=== PATIENT | female | born 1935 | race Caucasian/White ===

== ENCOUNTER → 2016-12-24 | Outpatient (CLI) | payer OTHER ==
[~2016-12-24] MED LIST: ASPCH81X PO; ATOR10TA82 PO; CALCCHW57 PO; MULTTAB PO
[2016-12-24 13:32] LABS: BASO % 0.8 %; BASO ABS # 0.04 K/uL (0-0.2); COMPLETE YES; EOS % 1.7 %; HEMATOCRIT 38.8 % (37-47); LYMPH % 24.5 %; LYMPH ABS # 1.16 K/uL (1.2-3.4); MEAN CELL VOLUME 95.8 fL (80-100); MEAN CORPUSCULAR HEMOGLOBIN 31.1 pg (25-34); MEAN CORPUSCULAR HGB CONC 32.5 g/dl (32-36); MEAN PLATELET VOLUME 10.3 fL (7.4-10.4); MONO % 8.9 %; NEUT % 64.1 %; PLATELET COUNT 334 K/uL (130-400); RED BLOOD COUNT 4.05 M/uL (4.2-5.4); WHITE BLOOD COUNT 4.74 K/uL (4.8-10.8)
[2016-12-24 14:24] LABS: ALT/SGPT 26 U/L (12-78); AST/SGOT 18 U/L (15-37); BLOOD UREA NITROGEN 16 mg/dl (7-18); BUN/CREATININE RATIO 20.6 (10-20); CALCIUM 9.3 mg/dl (8.5-10.1); CARBON DIOXIDE 31 mmol/L (21-32); CHLORIDE 106 mmol/L (98-107); GLUCOSE 84 mg/dl (70-99); POTASSIUM 4.2 mmol/L (3.5-5.1); SODIUM 142 mmol/L (136-145)
[2016-12-24 14:33] LABS: ALB/GLOB RATIO 1.1 (0.9-2); ALKALINE PHOSPHATASE 92 U/L (45-117); CHOLESTEROL 194 mg/dl (0-200); CHOLESTEROL/HDL RATIO 2.5; HDL CHOLESTEROL 79 mg/dl; TRIGLYCERIDES 49 mg/dl (0-150); VERY LOW DENSITY LIPOPROT CALC 10 mg/dl
== END | disposition home or self-care (01) ==
LOC: C.LABSPEC 12:32
PROVIDERS: ATTEND Internal Medicine
DX: E78.5 Hyperlipidemia, unspecified (principal); D64.9 Anemia, unspecified; Z85.3 Personal history of malignant neoplasm of breast

== ENCOUNTER → 2016-12-30 | Outpatient (CLI) | payer OTHER | END | disposition home or self-care (01) | LOC: C.PAPS 14:20 | PROVIDERS: ATTEND Internal Medicine | DX: Z12.4 Encounter for screening for malignant neoplasm of cervix (principal) ==

== ENCOUNTER → 2017-01-01 | Outpatient (CLI) | payer OTHER | END | disposition home or self-care (01) | LOC: C.LABSPEC 15:26 | PROVIDERS: ATTEND Internal Medicine | DX: Z12.11 Encounter for screening for malignant neoplasm of colon (principal) ==

== ENCOUNTER → 2017-01-07 | Outpatient (CLI) | payer OTHER ==
[2017-01-07 14:50] VITALS: BP 155/77; PULSE 71; TEMP 36.7; O2SAT 97
--- NOTE | 2017-01-07 15:49 | Radiation Oncology Follow-Up ---
Radiation Oncology Follow-Up Date of Visit January 07, 2017. 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 She denies any changes to her breast. She has noted no masses or tenderness and no change in the axilla. She did have discomfort following her mammogram in January. This lasted for approximately one month then resolved. There is no ecchymosis. This was located in the upper outer portion of the breast towards the axilla. Last year she was having some GI issues. She took ranitidine for a very short period of time and this resolved without difficulty. Allergies Coded Allergies: No Known Allergies (Verified , 03/13/15) Home Medications Scheduled Aspirin (Aspirin Chewable), 162 MG PO QAM Atorvastatin (Lipitor), 10 MG PO HS Calcium Carbonate-Vitamin D W/ (Calcium 1200), 600 MG PO BID Multivitamins/Minerals (Mvi With Minerals), 1 TAB PO QAM Review of Systems Gastrointestinal: Symptoms: WNL Oral: Symptoms: No Problems Other Oral Symptoms: Admits to sore on skin between nose and upper lip since yesterday Respiratory: Symptoms: WNL Urinary: Symptoms: WNL Comments: Recurrent UTI's since Jul;Referred to Dr. Gentile;Stress incontinence; Skin: Symptoms: No Problems Breast: Right Upper Arm Measurement: 32.0 Right Mid Arm Measurement: 24.0 Right Wrist Measurement: 16.0 Left Upper Arm Measurement: 32.0 Left Mid Arm Measurement: 24.0 Left Wrist Measurement: 15.0 Arm Dominence: Right Physical Exam Vital Signs Date Time Temp Pulse Resp B/P Pulse Ox O2 Delivery O2 Flow Rate FiO2 01/07/17 14:50 36.7 71 18 155/77 97 Pain: Pain Location: None Patient Pain Scale: 0 - 10 Initial Pain Intensity: 0.0 Fatigue: None General Appearance: no apparent distress Eyes: normal inspection, EOMI ENT: normal ENT inspection, hearing grossly normal Neck: no adenopathy Respiratory/Chest: lungs clear, no respiratory distress, no accessory muscle use Breast: Breast examination reveals well-healed incision of the left breast. There are no masses or tenderness and no axillary adenopathy. She is no skin retractions or nipple changes. Using the Princeton score cosmesis she has a excellent outcome. The right breast showed no masses or tenderness and no axillary adenopathy. Cardiovascular: regular rate, rhythm, no gallop, no murmur Abdomen: non tender, soft Neurologic/Psychiatric: no motor/sensory deficits, alert, normal mood/affect Skin: warm/dry Lymphatic: no adenopathy Laboratory Studies Test 12/24/16 09:00 01/01/17 00:00 White Blood Count 4.74 K/uL (4.8-10.8) Red Blood Count 4.05 M/uL (4.2-5.4) Hemoglobin 12.6 g/dL (12.0-16.0) Hematocrit 38.8 % (37-47) Mean Corpuscular Volume 95.8 fL (80-100) Mean Corpuscular Hemoglobin 31.1 pg (25-34) Mean Corpuscular Hemoglobin Concent 32.5 g/dl (32-36) Platelet Count 334 K/uL (130-400) Mean Platelet Volume 10.3 fL (7.4-10.4) Neutrophils (%) (Auto) 64.1 % Lymphocytes (%) (Auto) 24.5 % Monocytes (%) (Auto) 8.9 % Eosinophils (%) (Auto) 1.7 % Basophils (%) (Auto) 0.8 % Neutrophils # (Auto) 3.04 K/uL (1.4-6.5) Lymphocytes # (Auto) 1.16 K/uL (1.2-3.4) Monocytes # (Auto) 0.42 K/uL (0.11-0.59) Eosinophils # (Auto) 0.08 K/uL (0-0.5) Basophils # (Auto) 0.04 K/uL (0-0.2) RDW Standard Deviation 50.3 fL (36.4-46.3) RDW Coefficient of Variation 14.3 % (11.5-14.5) Immature Granulocyte % (Auto) 0.0 % Immature Granulocyte # (Auto) 0.00 K/uL (0.00-0.02) Sodium Level 142 mmol/L (136-145) Potassium Level 4.2 mmol/L (3.5-5.1) Chloride Level 106 mmol/L (98-107) Carbon Dioxide Level 31 mmol/L (21-32) Anion Gap 5.0 mmol/L (3-11) Blood Urea Nitrogen 16 mg/dl (7-18) Creatinine 0.80 mg/dl (0.60-1.20) Estimated GFR () 81.3 Estimated GFR (Non- 70.1 BUN/Creatinine Ratio 20.6 (10-20) Random Glucose 84 mg/dl (70-99) Calcium Level 9.3 mg/dl (8.5-10.1) Total Bilirubin 0.6 mg/dl (0.2-1) Aspartate Amino Transferase (AST) 18 U/L (15-37) Alanine Aminotransferase (ALT) 26 U/L (12-78) Alkaline Phosphatase 92 U/L (45-117) Total Protein 7.2 gm/dl (6.4-8.2) Albumin 3.8 gm/dl (3.4-5.0) Globulin 3.4 gm/dl (2.5-4.0) Albumin/Globulin Ratio 1.1 (0.9-2) Triglycerides Level 49 mg/dl (0-150) Cholesterol Level 194 mg/dl (0-200) HDL Cholesterol 79 mg/dl LDL Cholesterol Direct 101 mg/dl LDL Cholesterol, Calculated mg/dl VLDL Cholesterol, Calculated 10 mg/dl Cholesterol/HDL Ratio 2.5 Additional Studies Patient: EMMIE JONES [facility] Rec: [id number] Address1: [address] [place] [address] [facility]: [id number] Date: 1935 Sex: F Ref Phy: Att Phy: Cathy Guajardo PA-C Wilma Phy: Dalton Wright M.D. Inter Phy: Ban Brumfield MD [facility] Zip: [place] [address] SC: [id number] Report #: [id number] Quilt Maker: [email or web address] Diagnosis: 6 MONTH F/U BILATERAL Service Date: 01/28/16 MNE: [id number] Ordering Dr: Cathy Guajardo PA-C CC: Cathy Guajardo PA-C CONF: DICTATED BY: Ban Brumfield MD MAMMOGRAPHY REPORT BILATERAL DIGITAL DIAGNOSTIC MAMMOGRAM 3D/2D WITH CAD: 01/28/2016 CLINICAL HISTORY: History of left breast cancer status post lumpectomy February 2015 and radiation therapy. Comparison is made to exams dated: 08/15/2015 mammogram, 01/23/2015 mammogram, mammogram, 02/13/2015 mammogram, 02/01/2015 mammogram, and 01/04/2014 mammogram - [facility]. FINDINGS: Bilateral CC and MLO 2-D and tomosynthesis images and spot magnification left CC and ML views were obtained. There are scattered areas of fibroglandular density in both breasts. Current study was also evaluated with a Computer Aided Detection (CAD) system. There are stable post surgical changes in the left upper outer quadrant from prior lumpectomy, with stable density, architectural distortion, and surgical clips at the lumpectomy bed. Spot magnification views of the lumpectomy bed demonstrate no suspicious masses or clusters of microcalcifications. A few scattered punctate benign-appearing calcifications are seen within the left upper outer quadrant which are stable. Mild diffuse left breast skin and trabecular thickening is stable and likely a sequela of radiation therapy. There are no suspicious masses, calcifications, or areas of architectural distortion noted in either breast. IMPRESSION: ACR BI-RADS CATEGORY 2: BENIGN There is no mammographic evidence of malignancy in either breast. Recommend routine bilateral mammograms in one year; I would recommend the patient remain a diagnostic patient so that spot magnification views can be performed of the lumpectomy bed if needed. The patient has been verbally notified of the results. Approximately 10% of breast cancers are not detected with mammography. A negative mammographic report should not delay biopsy if a clinically suggestive mass is present. Ban Brumfield M.D. /:01/28/2016 09:28:42 Chief Of Hospital Medicine: Migdalia HYLTON (R)(Aliyah), [facility] letter sent: Normal 1/2 BI-RADS Code: ACR BI-RADS Category 2: Benign Dictated by: Ban Brumfield MD Signed by: Ban Brumfield MD Assessment & Plan Plan: Continue with annual mammography. Continue regular follow-up with Dr. Heath and her primary care provider. He discussed the area of discomfort following mammography. I've asked her to review this with the nuclear chemistry technician at the time of her next mammogram. We asked her to return to our office in 1 year. She may call if she has any questions or concerns in the interim. Total Time In Follow-Up I spent 20 minutes speaking to the patient and performing examination. I spent 15 minutes reviewing information and completing this note. Copy To Dalton Wright M.D.; Steve Heath M.D. 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
== END | disposition home or self-care (01) ==
LOC: C.ONC 14:14
PROVIDERS: ATTEND Physician Assistant Medical
DX: Z08 Encounter for follow-up examination after completed treatment for malignant neoplasm (principal); Z92.3 Personal history of irradiation; Z85.3 Personal history of malignant neoplasm of breast

== ENCOUNTER → 2017-01-30 | Outpatient (CLI) | payer OTHER ==
--- NOTE | 2017-01-30 15:41 | MAMMOGRAPHY REPORT ---
BILATERAL DIGITAL SCREENING MAMMOGRAM TOMOSYNTHESIS WITH CAD: 01/30/2017 CLINICAL HISTORY: Asymptomatic. Personal history of breast cancer. TECHNIQUE: Breast tomosynthesis in addition to standard 2D mammography was performed. Current study was also evaluated with a Computer Aided Detection (CAD) system. COMPARISON: Comparison is made to exams dated: 01/28/2016 mammogram, 08/15/2015 mammogram, 02/13/2015 mammogram, 02/01/2015 mammogram, 01/23/2015 mammogram, and 01/04/2014 mammogram - [facility] enter. BREAST COMPOSITION: There are scattered areas of fibroglandular density in both breasts. FINDINGS: No suspicious masses, calcifications, or areas of architectural distortion are noted in ei ther breast. There has been no significant interval change compared to prior exams. There are stable post surgical changes in the left upper outer quadrant from prior lumpectomy. A linear scar marker denotes a scar on the left upper outer breast. IMPRESSION: ACR BI-RADS CATEGORY 2: BENIGN There is no mammographic evidence of malignancy. A 1 year screening mammogram is recommended. The pa tient will receive written notification of the results. Approximately 10% of breast cancers are not detected with mammography. A negative mammographic report should not delay biopsy if a clinically suggestive mass is present. Ban Brumfield M.D. /:01/30/2017 14:53:57 Service Greeter: Paty HYLTON(Sumaya)(Aliyah)(BD), [facility] letter sent: Normal 1/2 BI-RADS Code: ACR BI-RADS Category 2: Benign
== END | disposition home or self-care (01) ==
LOC: C.MAMM 09:32
PROVIDERS: ATTEND Internal Medicine
DX: Z12.31 Encounter for screening mammogram for malignant neoplasm of breast (principal); Z85.3 Personal history of malignant neoplasm of breast

== ENCOUNTER → 2017-07-13 | Outpatient (CLI) | payer OTHER ==
[2017-07-13 15:22] LABS: BLOOD UREA NITROGEN 15 mg/dl (7-18); BUN/CREATININE RATIO 17.9 (10-20); CALCIUM 9.2 mg/dl (8.5-10.1); CARBON DIOXIDE 29 mmol/L (21-32); CHLORIDE 101 mmol/L (98-107); CHOLESTEROL 194 mg/dl (0-200); CREATININE 0.83 mg/dl (0.60-1.20); GLUCOSE 78 mg/dl (70-99); POTASSIUM 3.5 mmol/L (3.5-5.1); SODIUM 136 mmol/L (136-145)
[2017-07-13 15:26] LABS: CHOLESTEROL/HDL RATIO 2.3; HDL CHOLESTEROL 83 mg/dl; TRIGLYCERIDES 51 mg/dl (0-150); VERY LOW DENSITY LIPOPROT CALC 10 mg/dl
== END | disposition home or self-care (01) ==
LOC: C.LABSPEC 14:51
PROVIDERS: ATTEND Internal Medicine
DX: E78.5 Hyperlipidemia, unspecified (principal); N39.0 Urinary tract infection, site not specified

== ENCOUNTER → 2017-12-11 | Outpatient (CLI) | payer OTHER | END | disposition home or self-care (01) | LOC: C.LABSPEC 16:37 | PROVIDERS: ATTEND Internal Medicine | DX: N39.0 Urinary tract infection, site not specified (principal) ==

== ENCOUNTER 2019-01-27 05:30 | Inpatient (IN) ==
--- NOTE | 2019-01-07 10:45 | Anesthesiology Consultation ---
Date of Service January 07, 2019 Assessment & Plan (1) Encounter for pre-operative examination: Chart Review Chart Review: Acceptable Risk for Surgery and Patient NOT seen in Pre Admission Testing History Surgery Operation Date: 01/27/19 07:00 Proposed Procedures p Laparoscopic- Assisted Colon Resection, - Rob Vernon MD s Possible Open Bilateral Salpingo-Oophorectomy - Rob Vernon MD Height/Weight Height: 5 ft 6 in Weight: 77.111 kg Allergies Allergy/AdvReac Type Severity Reaction Status Date / Time No Known Allergies Allergy Mild Verified 01/05/19 08:31 Medications Home Medications Medication Instructions Recorded Confirmed Last Taken aspirin 162 mg PO HS 01/05/19 01/05/19 Unknown atorvastatin [Lipitor] 10 mg PO HS 01/05/19 01/05/19 Unknown calcium carbonate-vitamin D3 1 cap PO HS 01/05/19 01/05/19 Unknown [Calcium 600 with Vitamin D3] cholecalciferol (vitamin D3) 1,000 unit PO QAM 01/05/19 01/05/19 Unknown [Vitamin D3] multivitamin with minerals 1 cap PO QAM 01/05/19 01/05/19 Unknown Past Medical History Medical History Cancer LEFT BREAST CANCER (RADIATION [place]) Diverticulitis GERD (gastroesophageal reflux disease) Hepatitis A 1967 Hyperlipidemia Osteoarthritis Past Surgical History Surgical History History of bladder surgery SLING History of colonoscopy History of dilatation and curettage History of lumpectomy LEFT History of tooth extraction Social History Smoking Status: Never smoker Do You Dip or Chew Tobacco: No Hx Alcohol Use: No Hx Substance Use: No substance use type: does not use Testing Electrocardiogram Date: 12/18/18 Findings: + NSR @ (71) Other Testing Laboratory Tests 07/15/18 12/28/18 12/28/18 11:50 14:00 14:00 WBC Hgb Hct Plt Count PT 10.3 INR 1.0 APTT 25.3 Sodium 140 Potassium 3.5 Chloride 105 Carbon Dioxide 29 BUN 10 Creatinine 0.77 Glucose 72 TSH 1.340 12/28/18 14:00 WBC 6.48 Hgb 11.9 L Hct 36.0 L Plt Count 411 H PT INR APTT Sodium Potassium Chloride Carbon Dioxide BUN Creatinine Glucose TSH
[2019-01-27] MEDS ORDERED: LR 15ML/HR IV SCH (06:00)
[2019-01-27] MEDS ORDERED: ePHEDrine sulfate 50 MG/ML AMP IV PRN (06:23)
[2019-01-27] MEDS ORDERED: ONDANSETRON INJ 2 MG/ML 2 ML VIAL IV PRN (06:23)
[2019-01-27] MEDS ORDERED: ATROPINE SULFATE 0.1 MG/ML 10ML SYR IV PRN (06:23)
[2019-01-27] MEDS ORDERED: PHENYLEPHRINE 100MCG/ML 5ML SYR IV PRN (06:23)
--- NOTE | 2019-01-27 06:25 | History & Physical Bridge Note ---
Date of Service January 27, 2019 History & Physical Bridge Note I have examined the patient, reviewed the History & Physical and in the interval since the performance of the History & Physical I have noted the following changes of clinical significance: no changes noted had some bleeding per with bowel prep yesterday stopped in evening no changes since last seen all questions answered 5 family members at bedside will check hg although color good and vitals noted
[2019-01-27] MEDS ORDERED: fentaNYL citrate 100 MCG/2 ML VIAL ONE ×2 (06:44→08:13)
[2019-01-27] MEDS ORDERED: ACETAMINOPHEN 1000 MG/100 ML IV IV ONE (06:51)
--- NOTE | 2019-01-27 06:58 | Gynecologic Progress Note ---
Date of Service January 27, 2019 Subjective I saw patient preop, discussed procedure - plan is for bilateral oophorectomy and salpingectomy, laparoscopic unless conversion to open is needed. Skin marked, consent reviewed. Questions answered. Reviewed, that although case and imaging has been reviewed by legal document specialist oncologist and felt to be benign ovarian pathology, there is a possibility that this could be involved with or related to the colon cancer - thus complicating surgical management. Results & Data Vital Signs (Past 12 Hours) Vital Signs Temp Pulse Resp BP Pulse Ox 01/27/19 05:54 36.5 C 90 20 163/81 H 97
[2019-01-27] MEDS ORDERED: BUPIVACAINE 0.5 % 5 MG/1 ML MPF 30ML VIAL ONE (07:00)
[2019-01-27] MEDS ORDERED: LIDOCAINE/EPINEPHRINE 1% 20 ML VIAL ONE (07:00)
[2019-01-27] MEDS ORDERED: DEXAMETHASONE SOD INJ 4 MG/ML VIAL ONE (07:45)
[2019-01-27] MEDS ORDERED: LIDOCAINE HCL 2% 2 ML VIAL/AMP(20MG/ML) INFIL ONE (07:45)
[2019-01-27] MEDS ORDERED: PROPOFOL IV EMULSION 10 MG/ML 20 ML VIAL IV ONE (07:45)
[2019-01-27] MEDS ORDERED: ONDANSETRON INJ 2 MG/ML 2 ML VIAL ONE (07:45)
[2019-01-27] MEDS ORDERED: GLYCOPYRROLATE 0.2 MG/ML VIAL ONE (07:45)
[2019-01-27] MEDS ORDERED: ROCURONIUM BROMIDE 10 MG/ML 5 ML VIAL ONE (07:45)
[2019-01-27] MEDS ORDERED: NEOSTIGMINE METHYLSULFATE 5 MG/5 ML SYR ONE (07:45)
[2019-01-27 07:56] LABS: Hematocrit (blood only) 33.2 % (37-47); Mean Corpuscular Volume 90.5 fL (80-100); Mean Platelet Volume 9.9 fL (7.4-10.4); Platelet Count 323 K/uL (130-400); RDW Coefficient of Variation 14.6 % (11.5-14.5); RDW Standard Deviation 47.8 fL (36.4-46.3); Red Blood Count 3.67 M/uL (4.2-5.4); White Blood Count 6.26 K/uL (4.8-10.8)
[2019-01-27 08:06] LABS: Mean Corpuscular Hgb Conc 33.1 g/dL (32-36)
--- NOTE | 2019-01-27 08:09 | Operative Report ---
Post Operative Report Pre & Post Diagnosis Operation Date: 01/27/19 07:00 Pre: Right adnexal cyst Post: same Procedure Operation Date: 01/27/19 07:00 Bilateral salpingoophorectomy Surgeon Makenzie Saha, DO Informatics Nurse Dr Sami Vernon Estimated Blood Loss 5 Findings Consistent with Post-Op Diagnosis Simple appearing right adnexal cyst. Normal appearing bilateral tubes. Normal appearing left ovary. Specimens Right fallopian tube/ovary, left fallopian tube/ovary. Drains escalante, clear yellow Anesthesia Type General Complications none Disposition Accompanied Patient To Recovery: No Indications 83yo female with right adnexal cyst, also with adenocarcinoma of colon. She is undergoing colon resection today with Dr Vernon, therefore bilateral salpingoophorectomy was recommended concurrently for removal of adnexal cyst. Description of Procedure For details of colon resection, please see Dr Vernon's documentation. Upon placement of Bookwalter retractor and packing of bowel by Dr Vernon, uterus/tubes/ovaries were evaluated. The left tube and ovary were noted to be normal. This was grasped with a [place] clamp, ureter was identified away from the field, and the infundibulopelvic ligament was coagulated and transected with Ligasure. In a similar fashion, the fallopian tube and uteroovarian ligament were transected. The left tube/ovary were passed off to be sent to pathology. The right tube and ovary were identified, with a 5cm simple-appearing cyst. This was grasped with a vanessa clamp, ureter identified away from the field, and the right infundibulopelvic ligament was transected with Ligasure. The fallopian tube and right uteroovarian ligament were also transected and the specimen was passed off labeled Right ovary and fallopian tube. Bilateral ureters were visualized, urine clear. Excellent hemostasis noted. For further details of general surgery portion of case, please see general surgery documentation. I attest to the content of the Intraoperative Record and any orders documented therein. Any exceptions are noted below.
[2019-01-27] MEDS ORDERED: LABETALOL HCL IV 5 MG/ML 20ML IV ONE (08:48)
--- NOTE | 2019-01-27 09:15 | Post Operative Brief Note ---
Immediate Post Op Note v1 Date of Surgery January 27, 2019 Pre & Post Diagnosis Operation Date: 01/27/19 07:00 Pre-Op Diagnosis: Right ovarian Cyst; Adenocarcinoma Sigmoid Post-Op Diagnosis: Right ovarian Cyst; Adenocarcinoma Sigmoid Procedure Operation Date: 01/27/19 07:00 Actual Procedures p Laparoscopic- Assisted, Converted to Open Colon Resection - MD nichelle Main Bilateral Salpingo-Oophorectomy(Bilateral) - Makenzie Saha DO Surgeon Rob Vernon MD Fruit Grader Operator Dr Nichelle Vernon Estimated Blood Loss 100 Findings Consistent with Post-Op Diagnosis Drains Skyler Drain, Marcelo Catheter and Cowgill Drain Anesthesia Type General
--- NOTE | 2019-01-27 09:23 | Operative Report ---
Post Operative Report Pre & Post Diagnosis Operation Date: 01/27/19 07:00 Pre-Op Diagnosis: Right ovarian Cyst; Adenocarcinoma Sigmoid Post-Op Diagnosis: Right ovarian Cyst; Adenocarcinoma Sigmoid Procedure Operation Date: 01/27/19 07:00 Actual Procedures p Laparoscopic- Assisted, Converted to Open Colon Resection - Rob Vernon MD s Bilateral Salpingo-Oophorectomy(Bilateral) - Makenzie Saha DO The patient was brought into the operating theater supine position general endotracheal anesthesia Marcelo catheter was inserted abdomen was prepped Betadine solution properly draped systemic antibiotics given timeout was had patient identified made a small incision supraumbilically sufficient enough for a Veress needle followed by CO2 followed by 5 mm trocar point of entry inspected no injury identified this point place a 5 mm right lower quadrant port with preemptive analgesic and a 5 mm left upper quadrant port patient then we identified the colon which at the sigmoid area probably the area of interest seem to be fine adhesions to the abdominal wall which using scissors we freed that up and took that part with the colon which did not at the end appear to be any invasion of tumor this may been just inflammatory response we dissected down the white line of Toldt all the way up to the splenic flexure area we dissected down distally down and pelvic area this point I felt we had enough mobilization that we converted to an open procedure making a small incision supraumbilically approximately 8 cm long deepened to subcutaneous tissue and through the abdominal cavity Bookwalter retractor was inserted the bowel was pushed out retracted and at this point turned over the surgery to Dr. Saha and she performed bilateral salpingo-oophorectomy once that was completed we went on the performed her sigmoid resection we elevated the mass side of the abdominal wall and actually enough enough mobility proximally there we divided the descending colon approximately 8 cm so from the mass using a FE stapler the mesentery to that area was taken down to the inferior mesenteric artery doubly ligating the artery 2-0 silk resecting and distally we took the line of resection almost to the rectum taken the mesentery to stay in anterior to the bowels are higher as fascia identified both ureters and avoiding of right ankle intestinal clamp was placed in the distal sigmoid rectal area and resected the tumor with the specimen we then performed the anastomosis as removed tension-free we could do an end-to-end anastomosis by first using intestinal clamp and the descending colon proximal to the lateral resection then freed up the staple line that we initially placed and similarly we brought in the distal sigmoid rectal area using 3-0 silk sutures are layer 3-0 chromic interlayer doing an end and had a stent anastomosis some blood supply was excellent at the end we checked the anastomosis for patency appear satisfactory the area was then irrigated free of any debris I elected to drain the pelvis with a Skyler drain taken out the left lower quadrant incision attached to skin edge with 2-0 silk the abdominal incision was closed using #1 chromic for posterior peritoneum and rectus and interrupted #1 PDS for the anterior rectus quarter inch Shiva subcutaneously attached to the distal ends of either side with 3-0 silk arelis were used for the incision and the trocar site procedure was tolerated well by the patient estimated blood loss 100 cc addendum Fermin Real was present throughout the procedure and helped with exposure retraction and wound closure Surgeon Rob Vernon MD Realty Loan Specialist Dr Sami Vernon Estimated Blood Loss 100 Findings Consistent with Post-Op Diagnosis Specimens sigmoid colon Description of Procedure merda I attest to the content of the Intraoperative Record and any orders documented therein. Any exceptions are noted below.
[2019-01-27] MEDS: fentaNYL citrate 100 MCG/2 ML VIAL IV PRN ×4 (09:28→09:43)
[2019-01-27] MEDS: HYDROmorphone INJ 1 MG/ML SYRINGE IV PRN ×8 (09:48→10:25)
--- NOTE | 2019-01-27 10:56 | Anesthesiology Progress Note ---
Date of Service January 27, 2019 Anesthesia Post Procedure Vital Signs Vital Signs: Temp Pulse Resp BP Pulse Ox 01/27/19 10:50 36.3 C L 79 17 167/89 H 96 01/27/19 10:40 36.3 C L 76 16 165/83 H 99 01/27/19 10:30 72 15 168/79 H 99 01/27/19 10:20 67 16 183/86 H 100 01/27/19 10:10 68 18 188/77 H 100 01/27/19 10:00 36.6 C 84 22 171/87 H 100 01/27/19 09:50 36.6 C 60 22 159/66 H 100 01/27/19 09:40 36.6 C 65 25 H 150/83 H 100 01/27/19 09:30 36.6 C 69 23 145/74 H 100 01/27/19 09:20 36.6 C 77 16 168/81 H 100 01/27/19 05:54 36.5 C 90 20 163/81 H 97 Pain Intensity Abdomen: Pain Intensity: 8 Transfer of Care Handoff Completed per policy Notes Mental Status: alert / awake / arousable Patient Amnestic to Procedure: Yes Nausea / Vomiting: adequately controlled Pain: adequately controlled Airway Patency, RR, SpO2: stable & adequate BP & HR: stable & adequate Hydration State: stable & adequate Anesthetic Complications: no major complications apparent
[2019-01-27] MEDS ORDERED: ACETAMINOPHEN 1,000 MG/100 ML VIAL IV PRN (11:43)
[2019-01-27] MEDS ORDERED: MoRPHine SULFATE 2 MG/ML CARP IV PRN (11:43)
[2019-01-27] MEDS: LACTATED RINGER'S 1,000 ML IV SCH ×2 (12:01→23:01)
[2019-01-27 12:24] LABS: Hematocrit (blood only) 33.3 % (37-47); Hemoglobin 10.9 g/dL (12.0-16.0); Mean Corpuscular Hgb Conc 32.7 g/dL (32-36); Mean Platelet Volume 9.4 fL (7.4-10.4); Platelet Count 325 K/uL (130-400); RDW Coefficient of Variation 14.5 % (11.5-14.5); RDW Standard Deviation 48.1 fL (36.4-46.3); Red Blood Count 3.66 M/uL (4.2-5.4); White Blood Count 13.17 K/uL (4.8-10.8)
[2019-01-27 12:39] LABS: INR 1.1 (0.9-1.1)
[2019-01-27] MEDS: ONDANSETRON INJ 2 MG/ML 2 ML VIAL IV PRN (12:58)
[2019-01-27] MEDS: cefOXitin 2,000 MG in DEXTROSE 5% 50 ML IV SCH ×3 (13:22→23:56)
[2019-01-27] MEDS: MoRPHine SULFATE 4 MG/ML 1 ML CARP\\VIAL IV PRN ×2 (13:32→18:05)
[2019-01-27] MEDS: PROMETHAZINE HCL 25 MG in SODIUM CHLORIDE 0.9% 50 ML IV PRN (19:05)
[2019-01-27] MEDS ORDERED: METOPROLOL TARTRATE 25 MG TAB PO STA (21:57)
[2019-01-27] MEDS: ASPIRIN 81 MG ECTAB PO SCH (22:07)
[2019-01-27] MEDS: HEPARIN SOD 5,000 UNIT/0.5 ML VIAL SQ SCH (22:08)
[2019-01-28] MEDS: ONDANSETRON INJ 2 MG/ML 2 ML VIAL IV PRN ×2 (02:23→17:48)
[2019-01-28] MEDS: HEPARIN SOD 5,000 UNIT/0.5 ML VIAL SQ SCH ×3 (05:56→20:18)
[2019-01-28] MEDS: cefOXitin 2,000 MG in DEXTROSE 5% 50 ML IV SCH (05:56)
--- NOTE | 2019-01-28 06:16 | Surgery Progress Note ---
Date of Service January 28, 2019 Assessment & Plan (1) Colon cancer: POD 1 colon resection and BSO intraop findings discussed with pt plan d/c escalante increase activity slow with diet increase Dr Blum covering weekend Present on Admission?: Yes Subjective pt states feels better now had small emesis last evening drinking coke now I saw patient preop, discussed procedure - plan is for bilateral oophorectomy and salpingectomy, laparoscopic unless conversion to open is needed. Skin marked, consent reviewed. Questions answered. Reviewed, that although case and imaging has been reviewed by automotive airconditioning mechanic oncologist and felt to be benign ovarian pathology, there is a possibility that this could be involved with or related to the colon cancer - thus complicating surgical management. Review of Systems Review of Systems: no changes since preop Physical Exam Physical Exam: alert coherent in no distress no nausea abd pain under control has headache that she attributes to no coffee for few days vitals noted abd softly distended no tenderness Skyler drainage serous sanguinous Results & Data Vital Signs (Past 12 Hours) Vital Signs Temp Pulse Pulse Pulse Resp BP BP 01/28/19 03:16 36.6 C 73 14 173/77 H 01/28/19 03:08 65 175/55 H 01/28/19 00:18 175/85 H 01/27/19 23:04 36.7 C 83 14 187/82 H 01/27/19 20:36 92 H 191/94 H 01/27/19 20:35 180/90 H 01/27/19 20:26 36.5 C 92 H 13 189/84 H 01/27/19 18:30 36.3 C L 80 12 176/77 H Pulse Ox 01/28/19 03:16 98 01/28/19 03:08 01/28/19 00:18 01/27/19 23:04 100 01/27/19 20:36 01/27/19 20:35 01/27/19 20:26 95 01/27/19 18:30 93
[2019-01-28] MEDS ORDERED: FUROSEMIDE 10 MG in SYRINGE 0 ML IV ONE (06:28)
[2019-01-28 06:47] LABS: Basophils # (auto) 0.01 K/uL (0-0.2); Basophils % (auto) 0.1 %; Hematocrit (blood only) 33.7 % (37-47); Immature Granulocytes # (auto) 0.02 K/uL (0.00-0.02); Immature Granulocytes % (auto) 0.2 %; Lymphocytes # (auto) 0.82 K/uL (1.2-3.4); Lymphocytes % (auto) 7.5 %; Mean Corpuscular Hgb Conc 32.6 g/dL (32-36); Mean Corpuscular Volume 91.3 fL (80-100); Mean Platelet Volume 9.8 fL (7.4-10.4); Monocytes # (auto) 1.13 K/uL (0.11-0.59); Monocytes % (auto) 10.3 %; Neutrophils # (auto) 8.96 K/uL (1.4-6.5); Neutrophils % (auto) 81.9 %; Platelet Count 361 K/uL (130-400); RDW Coefficient of Variation 14.7 % (11.5-14.5); RDW Standard Deviation 49.2 fL (36.4-46.3); Red Blood Count 3.69 M/uL (4.2-5.4); White Blood Count 10.94 K/uL (4.8-10.8)
[2019-01-28 07:07] LABS: BUN Creatinine Ratio 8.9 (10-20); Calcium 8.9 mg/dl (8.5-10.1); Creatinine Clr Calc Pharmacy 55.8 ml/min; Est GFR (African American) 76.6; Est GFR (Non-African American) 66.1; Potassium 4.4 mmol/L (3.5-5.1)
[2019-01-28] MEDS ORDERED: SCOPOLAMINE 1.5 MG TDSY TD ONE (10:40)
--- NOTE | 2019-01-28 11:13 | Gynecologic Progress Note ---
Date of Service January 28, 2019 Subjective Patient seen, discussed findings from CANOE INSPECTOR FINAL portion of surgery. Awaiting pathology results of bilateral ovaries and tubes. She is in good spirits, tells me there are plans for escalante removal later today. States she has no pain if she lies still in bed. We discussed that ambulation will help recovery. Abdomen soft, benign. From CANOE INSPECTOR FINAL perspective, we are just waiting on path results - no additions to care plan - all postop management per gen surgery. Results & Data Vital Signs (Past 12 Hours) Vital Signs Temp Pulse Pulse Resp BP Pulse Ox 01/28/19 07:30 37 C 66 14 179/77 H 96 01/28/19 03:16 36.6 C 73 14 173/77 H 98 01/28/19 03:08 65 175/55 H 01/28/19 00:18 175/85 H
[2019-01-28] MEDS: LACTATED RINGER'S 1,000 ML IV SCH ×2 (11:17→22:55)
[2019-01-28] MEDS ORDERED: HydrALAZINE HCL 20 MG/ML VIAL IV PRN (13:26)
--- NOTE | 2019-01-28 13:36 | Consultation ---
Date of Consultation January 28, 2019 Assessment & Plan (1) Colon cancer: s/p colon resection 01/27 pain control, dvt prophylaxis and bowel regimen per surgery Monitor for acute blood loss (2) Hypertension: blood pressures elevated likely secondary to pain and IVF PRN hydralazine for SBP >185 or DBP >110. (3) Hyperlipidemia: continue atorvastatin and ASA when ok with surgery Thank you for involving the hospitalists in this patient's care. We will sign off at this time. Please let us know if you have any questions. History of Present Illness Attending Physician: Rob Vernon MD History of Present Illness Ms. Pabon is post colon resection 01/27. She is quite nauseas with vomiting over the night but none today. She is somewhat painful. 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 Allergies Allergy/AdvReac Type Severity Reaction Status Date / Time No Known Allergies Allergy Mild Verified 01/27/19 05:51 Home Medications Home Medications Medication Instructions Recorded Confirmed Type aspirin 162 mg PO HS 01/05/19 01/27/19 History atorvastatin [Lipitor] 10 mg PO HS 01/05/19 01/27/19 History calcium carbonate-vitamin D3 1 cap PO HS 01/05/19 01/27/19 History [Calcium 600 with Vitamin D3] cholecalciferol (vitamin D3) 1,000 unit PO QAM 01/05/19 01/27/19 History [Vitamin D3] multivitamin with minerals 1 cap PO QAM 01/05/19 01/27/19 History polyethylene glycol 3350 17 17 gm PO DAILY 01/12/19 01/27/19 History gram/dose oral powder Patient History Medical History Colon cancer Cancer LEFT BREAST CANCER (RADIATION [place]) Diverticulitis GERD (gastroesophageal reflux disease) Hepatitis A 1967 Hyperlipidemia Osteoarthritis Surgical History History of bladder surgery SLING History of colonoscopy History of dilatation and curettage History of lumpectomy LEFT History of tooth extraction Social History Preferred Language: Kazakh Communication Ability: Effective 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 Beliefs That Will Affect Care: None Current Living Situation: Alone Other Information That Helps Us Care for You: No Feels Safe at Home: Yes Safety Concerns: Feels Safe At This Time Smoking Status: Never smoker Do You Dip or Chew Tobacco: No Second Hand Exposure: No Tobacco Cessation Education Requested by Patient: No Hx Alcohol Use: No Hx Substance Use: No Review of Systems Review of Systems: All systems reviewed & are unremarkable except as noted in HPI & below Physical Exam Physical Exam: General: no distress Eyes: normal inspection, PERLL Respiratory: chest non tender, clear to auscultation, normal breath sounds, no respiratory distress, no accessory muscle use Cardiac: regular rate and rhythm, no rub or gallop, no murmur, no edema, no jvd GI/: active bowel sounds, no abd pain or tenderness, soft, non distended Extremities: normal range of motion, normal strength, non tender Neuro:oriented x 3, moves all extremities Psych: alert, normal mood and affect Skin: normal color, dry Results & Data Vital Signs (Past 12 Hours) Vital Signs Temp Pulse Pulse Resp BP Pulse Ox 01/28/19 12:31 37.5 C 61 16 173/71 H 100 01/28/19 07:30 37 C 66 14 179/77 H 96 01/28/19 03:16 36.6 C 73 14 173/77 H 98 01/28/19 03:08 65 175/55 H PG Care Time/CCT Total # of Minutes Spent Total Time Spent with Patient: Total time spent is greater than 50% in coordination of care (as documented) at patient's floor/unit and/or counseling patient:
[2019-01-28] MEDS: CHECK SCOPOLAMINE PATCH PLACEMENT SCH ×2 (15:48→22:55)
[2019-01-28] MEDS: PROMETHAZINE HCL 25 MG in SODIUM CHLORIDE 0.9% 50 ML IV PRN (20:12)
[2019-01-28] MEDS: ASPIRIN 81 MG ECTAB PO SCH (20:15)
[2019-01-29 05:24] LABS: Basophils # (auto) 0.01 K/uL (0-0.2); Basophils % (auto) 0.1 %; Eosinophils # (auto) 0.01 K/uL (0-0.5); Eosinophils % (auto) 0.1 %; Hematocrit (blood only) 33.6 % (37-47); Hemoglobin 11.1 g/dL (12.0-16.0); Immature Granulocytes # (auto) 0.02 K/uL (0.00-0.02); Immature Granulocytes % (auto) 0.2 %; Lymphocytes # (auto) 1.33 K/uL (1.2-3.4); Lymphocytes % (auto) 13.9 %; Mean Corpuscular Volume 90.6 fL (80-100); Mean Platelet Volume 9.4 fL (7.4-10.4); Monocytes # (auto) 0.74 K/uL (0.11-0.59); Monocytes % (auto) 7.7 %; Neutrophils # (auto) 7.44 K/uL (1.4-6.5); Platelet Count 342 K/uL (130-400); RDW Coefficient of Variation 14.8 % (11.5-14.5); RDW Standard Deviation 49.5 fL (36.4-46.3); Red Blood Count 3.71 M/uL (4.2-5.4); White Blood Count 9.55 K/uL (4.8-10.8)
[2019-01-29 05:49] LABS: BUN Creatinine Ratio 12.3 (10-20); Calcium 8.6 mg/dl (8.5-10.1); Creatinine Clr Calc Pharmacy 74.7 ml/min; Est GFR (Non-African American) 84.6; Potassium 3.9 mmol/L (3.5-5.1)
[2019-01-29] MEDS: HEPARIN SOD 5,000 UNIT/0.5 ML VIAL SQ SCH ×3 (05:52→21:15)
[2019-01-29] MEDS: CHECK SCOPOLAMINE PATCH PLACEMENT SCH ×2 (08:48→16:37)
[2019-01-29] MEDS: LACTATED RINGER'S 1,000 ML IV SCH (12:00)
--- NOTE | 2019-01-29 15:04 | Surgery Progress Note ---
Date of Service January 29, 2019 Assessment & Plan (1) Colon cancer: 01/29/2019 POD #2 colon resection and BSO AM labs- WBC 9.55; H and H stable. Patient doing well this AM, nausea has resolved and pain well controlled. Tolerating clear liquid diet and would like to try full liquids. Ok to d/c ava this AM. Continue drain. Patient requesting abdominal binder for when she gets up and walks around. Will order. 01/28/2019 POD 1 colon resection and BSO intraop findings discussed with pt plan d/c [facility] increase activity slow with diet increase Dr Blum covering weekend Subjective Patient resting comfortably in bed- was having her dressing changed at the time. Patient reports that she is feeling much better today. Had nausea yesterday, but that has since resolved. She has been ambulating in the hallway without issue. Physical Exam Gastrointestinal (Abdomen): Inspection/Auscultation: abdomen not distended Percussion/Palpation: + abdomen tender (as expected at incision ) and abdomen soft; no guarding and abdomen not rigid +drain with serosang drainage (80cc overnight) Results & Data Vital Signs (Past 12 Hours) Vital Signs Temp Pulse Resp BP Pulse Ox 01/29/19 12:02 36.7 C 18 157/75 H 91 01/29/19 07:38 36.6 C 18 171/75 H 92 01/29/19 07:23 37.1 C 95 H 18 151/85 H 90
[2019-01-29] MEDS: ASPIRIN 81 MG ECTAB PO SCH (21:09)
[2019-01-30] MEDS ORDERED: SODIUM CHLORIDE 0.9% 1000ML 1,000 ML IV SCH (00:55)
[2019-01-30] MEDS ORDERED: METOPROLOL TARTRATE 1 MG/ML VIAL IV STA (00:56)
[2019-01-30] MEDS ORDERED: METOPROLOL TARTRATE 1 MG/ML VIAL IV ONE (00:57)
[2019-01-30] MEDS: CHECK SCOPOLAMINE PATCH PLACEMENT SCH ×3 (01:04→15:40)
[2019-01-30 01:08] LABS: Basophils # (auto) 0.02 K/uL (0-0.2); Basophils % (auto) 0.2 %; Eosinophils # (auto) 0.02 K/uL (0-0.5); Eosinophils % (auto) 0.2 %; Hematocrit (blood only) 34.8 % (37-47); Hemoglobin 11.4 g/dL (12.0-16.0); Immature Granulocytes # (auto) 0.02 K/uL (0.00-0.02); Immature Granulocytes % (auto) 0.2 %; Lymphocytes # (auto) 1.78 K/uL (1.2-3.4); Lymphocytes % (auto) 20.6 %; Mean Corpuscular Hgb Conc 32.8 g/dL (32-36); Mean Corpuscular Volume 90.2 fL (80-100); Mean Platelet Volume 9.8 fL (7.4-10.4); Monocytes # (auto) 0.86 K/uL (0.11-0.59); Neutrophils # (auto) 5.92 K/uL (1.4-6.5); Neutrophils % (auto) 68.8 %; Platelet Count 347 K/uL (130-400); RDW Coefficient of Variation 14.8 % (11.5-14.5); RDW Standard Deviation 49.1 fL (36.4-46.3); Red Blood Count 3.86 M/uL (4.2-5.4); White Blood Count 8.62 K/uL (4.8-10.8)
[2019-01-30 01:11] LABS: BUN Creatinine Ratio 11.6 (10-20); Calcium 8.8 mg/dl (8.5-10.1); Creatinine Clr Calc Pharmacy 72.4 ml/min; Est GFR (Non-African American) 83.7; Magnesium 1.9 mg/dl (1.8-2.4); Potassium 3.8 mmol/L (3.5-5.1)
[2019-01-30] MEDS: LACTATED RINGER'S 1,000 ML IV SCH (01:19)
[2019-01-30 01:24] LABS: Phosphorus 1.4 mg/dl (2.5-4.9)
[2019-01-30] MEDS ORDERED: POTASSIUM PHOS 3 MMOL/1 ML INFUSION IV STA (01:28)
[2019-01-30] MEDS ORDERED: POTASSIUM PHOSPHATE 24 MMOL in SODIUM CHLORIDE 0.9% 500 ML IV ONE (02:00)
[2019-01-30] MEDS: NSS + 20MEQ KCL 20 MEQ/1,000 ML BAG IV SCH ×2 (02:14→09:04)
[2019-01-30 06:21] LABS: Basophils # (auto) 0.03 K/uL (0-0.2); Basophils % (auto) 0.5 %; Eosinophils # (auto) 0.03 K/uL (0-0.5); Eosinophils % (auto) 0.5 %; Hematocrit (blood only) 32.8 % (37-47); Hemoglobin 10.7 g/dL (12.0-16.0); Immature Granulocytes # (auto) 0.01 K/uL (0.00-0.02); Immature Granulocytes % (auto) 0.2 %; Lymphocytes % (auto) 23.2 %; Mean Corpuscular Hgb Conc 32.6 g/dL (32-36); Mean Corpuscular Volume 90.9 fL (80-100); Mean Platelet Volume 9.6 fL (7.4-10.4); Monocytes # (auto) 0.63 K/uL (0.11-0.59); Monocytes % (auto) 9.7 %; Neutrophils # (auto) 4.27 K/uL (1.4-6.5); Neutrophils % (auto) 65.9 %; Platelet Count 286 K/uL (130-400); RDW Coefficient of Variation 14.8 % (11.5-14.5); RDW Standard Deviation 49.3 fL (36.4-46.3); Red Blood Count 3.61 M/uL (4.2-5.4); White Blood Count 6.47 K/uL (4.8-10.8)
[2019-01-30] MEDS: HEPARIN SOD 5,000 UNIT/0.5 ML VIAL SQ SCH ×3 (06:24→20:32)
[2019-01-30 06:50] LABS: BUN Creatinine Ratio 11.4 (10-20); Calcium 8.3 mg/dl (8.5-10.1); Creatinine Clr Calc Pharmacy 77.2 ml/min; Est GFR (African American) 99.1; Est GFR (Non-African American) 85.5; Potassium 4.3 mmol/L (3.5-5.1)
[2019-01-30] MEDS: METOPROLOL TARTRATE 25 MG TAB PO SCH ×2 (09:04→20:32)
--- NOTE | 2019-01-30 09:42 | Surgery Progress Note ---
Date of Service January 30, 2019 Assessment & Plan (1) Colon cancer: POD#3 sigmoidectomy, afib overnight but resolved. advance to low fiber diet if passes flatus or has bm today, otherwise hold with full liquids hold off on eliquis for today h/l ivf's ambulate, is, hsqtid phos replaced overnight Dr. Vernon back tomorrow (2) New onset a-fib: Present on Admission?: No Subjective POD#3 sigmoidectomy. Afib with RVR overnight, transferred to [facility], now in [facility]. Tolerated full liquids this morning, no flatus but feels rumbling. Physical Exam Constitutional: WD/WN, vitals as above Cardiovascular: RRR, no murmur, no edema Gastrointestinal (Abdomen): incision with dressing in place, c/d/i, no e/o infection. abd soft, appropriately ttp, non distended Results & Data Vital Signs (Past 12 Hours) Vital Signs Temp Pulse Pulse Pulse Resp BP Pulse Ox 01/30/19 09:02 77 126/72 01/30/19 07:31 36.8 C 77 16 155/83 H 94 01/30/19 05:36 86 01/30/19 05:33 115 H 01/30/19 05:31 139 H 20 145/82 H 01/30/19 03:22 36.6 C 80 16 150/78 H 95 01/30/19 01:08 81 01/30/19 00:38 161 H 01/30/19 00:36 37.2 C 152 H 20 131/63 95 01/29/19 23:35 36.8 C 77 18 108/75 92 01/29/19 23:30 106 H Laboratory Results Laboratory Results - last 24 hr 01/30/19 01/30/19 01/30/19 00:28 00:31 05:47 WBC 8.62 6.47 RBC 3.86 L 3.61 L Hgb 11.4 L 10.7 L Hct 34.8 L 32.8 L MCV 90.2 90.9 MCH 29.5 29.6 MCHC 32.8 32.6 RDW Std Deviation 49.1 H 49.3 H RDW Coeff of Mitul 14.8 H 14.8 H Plt Count 347 286 MPV 9.8 9.6 Immature Gran % (Auto) 0.2 0.2 Neut % (Auto) 68.8 65.9 Lymph % (Auto) 20.6 23.2 Mclennan % (Auto) 10.0 9.7 Eos % (Auto) 0.2 0.5 Baso % (Auto) 0.2 0.5 Immature Gran # (Auto) 0.02 0.01 Neut # (Auto) 5.92 4.27 Lymph # (Auto) 1.78 1.50 Mclennan # (Auto) 0.86 H 0.63 H Eos # (Auto) 0.02 0.03 Baso # (Auto) 0.02 0.03 Sodium 139 Potassium 3.8 Chloride 105 Carbon Dioxide 30 Anion Gap 4.0 BUN 7 Creatinine 0.64 Est Cr Clr Drug Dosing 72.4 Est GFR ( Amer) 97.0 Est GFR (Non-Af Amer) 83.7 BUN/Creatinine Ratio 11.6 Glucose 108 H Calcium 8.8 Phosphorus 1.4 L* Magnesium 1.9 TSH 2.550 01/30/19 05:47 WBC RBC Hgb Hct MCV MCH MCHC RDW Std Deviation RDW Coeff of Mitul Plt Count MPV Immature Gran % (Auto) Neut % (Auto) Lymph % (Auto) Mclennan % (Auto) Eos % (Auto) Baso % (Auto) Immature Gran # (Auto) Neut # (Auto) Lymph # (Auto) Mclennan # (Auto) Eos # (Auto) Baso # (Auto) Sodium 140 Potassium 4.3 Chloride 108 H Carbon Dioxide 27 Anion Gap 5.0 BUN 7 Creatinine 0.60 Est Cr Clr Drug Dosing 77.2 Est GFR ( Amer) 99.1 Est GFR (Non-Af Amer) 85.5 BUN/Creatinine Ratio 11.4 Glucose 85 Calcium 8.3 L Phosphorus Magnesium TSH
[2019-01-30] MEDS: PANTOprazole 40 MG TAB PO SCH (10:21)
--- NOTE | 2019-01-30 11:29 | Hospitalist Progress Note ---
Date of Service January 30, 2019 Assessment & Plan (1) Colon cancer: s/p colon resection and bilateral salpingoophorectomy 01/27 pain control, dvt prophylaxis and bowel regimen per surgery Monitor for acute blood loss (2) New onset a-fib: At x2 episodes last night with some brief runs of tachycardia flutter vs fib on the monitor today. CHADS-VASc 3 - would like to begin Eliquis given that with her cancer history she is at higher risk for clotting. Dr. Blum covering for the weekend, would like us to hold off until tomorrow and discuss with Dr. Vernon. She will continue on ASA and subq heparin for now - initiate metoprolol tartrate 12.5 mg bid - can be titrated up as needed/tolerated - request sent to the nurse navigator to set patient up for Holter monitor and cardiology follow up after discharge (3) Hypertension: blood pressures have improved PRN hydralazine for SBP >185 or DBP >110. (4) Hyperlipidemia: continue atorvastatin and ASA when ok with surgery (5) GERD (gastroesophageal reflux disease): Will give protonix po daily Subjective Ms. Pabon feels well today except for some acid reflux symptoms. She had two episodes of A.fib over the night, heart rate as high as 150s. She could feel it "in her throat" but denies any chest pain or shortness of breath. She is no longer having any symptoms and has been in a SR on the monitor Review of Systems Review of Systems: All systems reviewed & are unremarkable except as noted in HPI & below Physical Exam Physical Exam: General: no distress Eyes: normal inspection, PERLL Respiratory: chest non tender, clear to auscultation, normal breath sounds, no respiratory distress, no accessory muscle use Cardiac: regular rate and rhythm, no rub or gallop, no murmur, no edema, no jvd GI/: active bowel sounds, no abd pain or tenderness, soft, non distended Extremities: normal range of motion, normal strength, non tender Neuro/Psych: alert and oriented x 3, normal mood and affect Skin: normal color, dry Results & Data Vital Signs (Past 12 Hours) Vital Signs Temp Pulse Pulse Pulse Resp BP Pulse Ox 01/30/19 09:02 77 126/72 01/30/19 07:31 36.8 C 77 16 155/83 H 94 01/30/19 05:36 86 01/30/19 05:33 115 H 01/30/19 05:31 139 H 20 145/82 H 01/30/19 03:22 36.6 C 80 16 150/78 H 95 01/30/19 01:08 81 01/30/19 00:38 161 H 01/30/19 00:36 37.2 C 152 H 20 131/63 95 01/29/19 23:35 36.8 C 77 18 108/75 92 01/29/19 23:30 106 H PG Care Time/CCT Total # of Minutes Spent Total Time Spent with Patient: Total time spent is greater than 50% in coordination of care (as documented) at patient's floor/unit and/or counseling patient:
[2019-01-30] MEDS: ASPIRIN 81 MG ECTAB PO SCH (20:31)
[2019-01-31] MEDS: CHECK SCOPOLAMINE PATCH PLACEMENT SCH ×2 (00:25→07:24)
[2019-01-31] MEDS: HEPARIN SOD 5,000 UNIT/0.5 ML VIAL SQ SCH ×2 (06:28→14:17)
[2019-01-31 06:46] LABS: Basophils # (auto) 0.02 K/uL (0-0.2); Basophils % (auto) 0.4 %; Eosinophils # (auto) 0.13 K/uL (0-0.5); Eosinophils % (auto) 2.6 %; Hematocrit (blood only) 32.7 % (37-47); Hemoglobin 10.8 g/dL (12.0-16.0); Lymphocytes # (auto) 1.35 K/uL (1.2-3.4); Lymphocytes % (auto) 26.7 %; Mean Corpuscular Volume 90.3 fL (80-100); Monocytes # (auto) 0.48 K/uL (0.11-0.59); Monocytes % (auto) 9.5 %; Neutrophils # (auto) 3.08 K/uL (1.4-6.5); Neutrophils % (auto) 60.8 %; Platelet Count 276 K/uL (130-400); RDW Coefficient of Variation 14.8 % (11.5-14.5); RDW Standard Deviation 48.9 fL (36.4-46.3); Red Blood Count 3.62 M/uL (4.2-5.4); White Blood Count 5.06 K/uL (4.8-10.8)
[2019-01-31 07:09] LABS: BUN Creatinine Ratio 9.2 (10-20); Calcium 8.6 mg/dl (8.5-10.1); Creatinine Clr Calc Pharmacy 83.6 ml/min; Est GFR (African American) 100.8; Est GFR (Non-African American) 86.9; Potassium 3.6 mmol/L (3.5-5.1)
[2019-01-31] MEDS: PANTOprazole 40 MG TAB PO SCH (07:23)
[2019-01-31] MEDS: METOPROLOL TARTRATE 25 MG TAB PO SCH ×2 (07:23→21:32)
--- NOTE | 2019-01-31 07:25 | Surgery Progress Note ---
Date of Service January 31, 2019 Assessment & Plan (1) Colon cancer: POD #4 path pending isak from sub cut removed diet advanced to low fiber can start Eliquis per medical service d/c once pt has bm likely today POD#3 sigmoidectomy, afib overnight but resolved. advance to low fiber diet if passes flatus or has bm today, otherwise hold with full liquids hold off on eliquis for today h/l ivf's ambulate, is, hsqtid phos replaced overnight Dr. Vernon back tomorrow (2) New onset a-fib: Subjective feels well had flatus x2 overnight taking no pain meds Review of Systems Review of Systems: no nausea Physical Exam Physical Exam: alert coherent up and about abd neg incision healing well minimal serous wale drainage Results & Data Vital Signs (Past 12 Hours) Vital Signs Temp Pulse Pulse Resp BP Pulse Ox 01/31/19 04:00 37 C 74 18 166/77 H 95 01/31/19 00:21 69 01/30/19 23:58 36.5 C 77 17 144/94 H 95 01/30/19 19:30 36.8 C 74 18 136/77 90
--- NOTE | 2019-01-31 14:38 | Cardiology Consultation ---
Date of Consultation January 31, 2019 Assessment & Plan (1) New onset a-fib: Patient has had episodes of atrial fibrillation associated high ventricular rates. In some fashion, this is likely related to her surgery and the associated metabolic disturbance. However, she has also 83 years old and is at risk for atrial arrhythmias. I suspect this is her 1st episode she has not report symptoms similar to this in the past. She does appear to appreciate the associated tachycardia but has few other symptoms. She did have some dizziness and this was likely related to high ventricular rates and attempt to ambulate. She has had very little atrial fibrillation of the course of last 24 hours. Perhaps this is due to continue recovery from her surgery. However, I think we can adopt a rate control strategy. I will intensify her rate control by doubling her metoprolol. I would agree with recommendation for anticoagulation. Given her normal renal function use of a novel anticoagulant will be recommended. Eliquis 5 mg twice daily would be a good choice. Alternatively, Xarelto 20 mg daily can be used. Once started on anticoagulation I would stop her aspirin. Present on Admission?: No (2) Elevated troponin: This is likely demand ischemia. It is possible that she suffered a chika surgical infarct, but the more likely etiology for elevation is simply an extended period of high ventricular rates. This was suggest an element of fixed coronary disease. However, she does not have angina during her tachycardia or at other times. She does not give a history angina. I think we will check an echocardiogram. In the absence of significantly reduced LV systolic function regional wall motion abnormalities do not think we will pursue this abnormality. We will continue on aggressive primary prevention coronary disease and attempt more robust rate control. History of Present Illness Reason for Consultation: Atrial fibrillation Requesting Physician: Tho Attending Physician: Rob Vernon MD History of Present Illness The patient is an 83-year-old woman with history of colon cancer who presented for operative intervention. In the postoperative. Patient was noted to have atrial fibrillation and associated high ventricular rates. Patient did notice a sense of palpitations and tachycardia. She did not report associated symptoms of dyspnea or chest discomfort. Initially she did have some mild dizziness and lightheadedness when attempting to ambulate while in the tachycardia. Prior to her surgery the patient reported being quite active. He is able to ambulate without limiting symptoms of dyspnea or chest discomfort. She has not been aware of any palpitations in the past. She denies dizziness or lightheadedness. She cannot recall suffering a syncopal episode. Allergies Allergy/AdvReac Type Severity Reaction Status Date / Time No Known Allergies Allergy Mild Verified 01/27/19 05:51 Home Medications Home Medications Medication Instructions Recorded Confirmed Type aspirin 162 mg PO HS 01/05/19 01/27/19 History atorvastatin [Lipitor] 10 mg PO HS 01/05/19 01/27/19 History calcium carbonate-vitamin D3 1 cap PO HS 01/05/19 01/27/19 History [Calcium 600 with Vitamin D3] cholecalciferol (vitamin D3) 1,000 unit PO QAM 01/05/19 01/27/19 History [Vitamin D3] multivitamin with minerals 1 cap PO QAM 01/05/19 01/27/19 History polyethylene glycol 3350 17 17 gm PO DAILY 01/12/19 01/27/19 History gram/dose oral powder Patient History Medical History Colon cancer Cancer LEFT BREAST CANCER (RADIATION [place]) Diverticulitis GERD (gastroesophageal reflux disease) Hepatitis A 1967 Hyperlipidemia Osteoarthritis Surgical History History of bladder surgery SLING History of colonoscopy History of dilatation and curettage History of lumpectomy LEFT History of tooth extraction Social History Preferred Language: Romansh Communication Ability: Effective 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 No bowel movement yet. Minimal pain from her operative intervention. Physical Exam Physical Exam: She is alert and oriented x3. Mood affect appear normal. She answered all questions appropriately. HEENT: Sclerae are anicteric. Pupils are equal and reactive to light and accommodation. Extraocular movements were intact. Neuro: Cranial nerves intact Neck: Examination of the submandibular region did not reveal any significant lymphadenopathy. Carotids are palpable bilaterally and free of bruits on auscultation. There was no evidence of jugular venous distention. The thyroid was not enlarged. Lungs: Lungs are clear to auscultation bilaterally. There are no rales wheezes or rhonchi. She has normal respiratory effort without use of accessory muscles. There is normal pulmonary excursion. Cardiac: The rhythm was regular. S1 and S2 were normal. There are no murmurs on examination. The PMI was not markedly displaced on palpation. Abdomen: The abdomen was soft and nontender. Extremities: Patient has bilateral radial pulses that are equal in intensity. There is no evidence cyanosis or clubbing. There was mild lower extremity edema Skin: There are no rashes noted on examination today. Results & Data Vital Signs (Past 12 Hours) Vital Signs Temp Pulse Resp BP Pulse Ox 01/31/19 12:00 36.9 C 81 16 105/69 97 01/31/19 07:20 36.8 C 88 16 126/74 96 01/31/19 04:00 37 C 74 18 166/77 H 95 Laboratory Results Abnormal Lab Results 01/31/19 01/31/19 01/31/19 06:02 06:02 08:32 WBC 5.06 RBC 3.62 L Hgb 10.8 L Hct 32.7 L MCV 90.3 MCH 29.8 MCHC 33.0 RDW Std Deviation 48.9 H RDW Coeff of Mitul 14.8 H Plt Count 276 MPV 10.0 Immature Gran % (Auto) 0.0 Neut % (Auto) 60.8 Lymph % (Auto) 26.7 Bay % (Auto) 9.5 Eos % (Auto) 2.6 Baso % (Auto) 0.4 Immature Gran # (Auto) 0.00 Neut # (Auto) 3.08 Lymph # (Auto) 1.35 Bay # (Auto) 0.48 Eos # (Auto) 0.13 Baso # (Auto) 0.02 Sodium 141 Potassium 3.6 D Chloride 109 H Carbon Dioxide 27 Anion Gap 5.0 BUN 5 L Creatinine 0.57 L Est Cr Clr Drug Dosing 83.6 Est GFR ( Amer) 100.8 Est GFR (Non-Af Amer) 86.9 BUN/Creatinine Ratio 9.2 L Glucose 89 Calcium 8.6 Troponin I 0.393 H* 01/31/19 13:56 WBC RBC Hgb Hct MCV MCH MCHC RDW Std Deviation RDW Coeff of Mitul Plt Count MPV Immature Gran % (Auto) Neut % (Auto) Lymph % (Auto) Bay % (Auto) Eos % (Auto) Baso % (Auto) Immature Gran # (Auto) Neut # (Auto) Lymph # (Auto) Bay # (Auto) Eos # (Auto) Baso # (Auto) Sodium Potassium Chloride Carbon Dioxide Anion Gap BUN Creatinine Est Cr Clr Drug Dosing Est GFR ( Amer) Est GFR (Non-Af Amer) BUN/Creatinine Ratio Glucose Calcium Troponin I 0.354 H* ECG Additional Comments: Currently normal sinus rhythm. Previous EKGs have demonstrated atrial fibrillation, rapid ventricular response and ST and T-wave changes concerning for ischemia
[2019-01-31] MEDS: APIXABAN 5 MG TABLET PO SCH (21:32)
--- NOTE | 2019-01-31 23:30 | Hospitalist Progress Note ---
Date of Service January 31, 2019 Assessment & Plan (1) Colon cancer: s/p colon resection and bilateral salpingoophorectomy 01/27 pain control, dvt prophylaxis and bowel regimen per surgery Monitor for acute blood loss (2) New onset a-fib: At x2 episodes last night with some brief runs of tachycardia flutter vs fib on the monitor today. CHADS-VASc 3 - would like to begin Eliquis given that with her cancer history she is at higher risk for clotting. Dr. Blum covering for the weekend, would like us to hold off until tomorrow and discuss with Dr. Vernon. She will continue on ASA and subq heparin for now - initiate metoprolol tartrate 12.5 mg bid - can be titrated up as needed/tolerated - request sent to the nurse navigator to set patient up for Holter monitor and cardiology follow up after discharge Appreciate input from cardio: Patient has had episodes of atrial fibrillation associated high ventricular rates. In some fashion, this is likely related to her surgery and the associated metabolic disturbance. However, she has also 83 years old and is at risk for atrial arrhythmias. I suspect this is her 1st episode she has not report symptoms similar to this in the past. She does appear to appreciate the associated tachycardia but has few other symptoms. She did have some dizziness and this was likely related to high ventricular rates and attempt to ambulate. She has had very little atrial fibrillation of the course of last 24 hours. Perhaps this is due to continue recovery from her surgery. However, I think we can adopt a rate control strategy. I will intensify her rate control by doubling her metoprolol. I would agree with recommendation for anticoagulation. Given her normal renal function use of a novel anticoagulant will be recommended. Eliquis 5 mg twice daily would be a good choice. Alternatively, Xarelto 20 mg daily can be used. Once started on anticoagulation I would stop her aspirin. (3) Hypertension: blood pressures have improved PRN hydralazine for SBP >185 or DBP >110. BP appears beter controlled. (4) Hyperlipidemia: continue atorvastatin and ASA when ok with surgery (5) GERD (gastroesophageal reflux disease): Will give protonix po daily (6) Elevated troponin: Likely demand ischemia. On monitor. Peaked at .39 and trending down. Patient remains in hospital due to consitipation. In regards to new onset a. fib, discharge plan appears to be in place. Medical team will sign off. Please do not hesitate to call for any further assistance. Spent 35 minutes in management of patient. Subjective Patient reports feeling well. Patient denies any complaints except for constipation. Patient reports having passed gas overnight, which she reports as being very excited. Patient denies any chest pain, nausea, vomiting. Review of Systems Review of Systems: All systems reviewed & are unremarkable except as noted in HPI & below Physical Exam Physical Exam: General: no distress Eyes: normal inspection, PERLL Respiratory: chest non tender, clear to auscultation, normal breath sounds, no respiratory distress, no accessory muscle use Cardiac: regular rate and rhythm, no rub or gallop, no murmur, no edema, no jvd GI/: active bowel sounds, no abd pain or tenderness, soft, non distended Extremities: normal range of motion, normal strength, non tender Neuro/Psych: alert and oriented x 3, normal mood and affect Skin: normal color, dry Results & Data Vital Signs (Past 12 Hours) Vital Signs Temp Pulse Pulse Resp BP Pulse Ox 01/31/19 19:21 36.4 C L 100 H 16 144/78 H 100 01/31/19 16:00 77 01/31/19 15:57 36.6 C 79 18 162/84 H 97 01/31/19 12:00 36.9 C 81 16 105/69 97 PG Care Time/CCT Total # of Minutes Spent Total Time Spent with Patient: Total time spent is greater than 50% in coordination of care (as documented) at patient's floor/unit and/or counseling patient:
--- NOTE | 2019-02-01 06:17 | Surgery Progress Note ---
Date of Service February 01, 2019 Assessment & Plan (1) Colon cancer: POD #5 d/c once has bm and ok with cardiology path report noted and discussed with pt(will schedule meghan with oncology in office visit after d/c) POD #4 path pending isak from sub cut removed diet advanced to low fiber can start Eliquis per medical service d/c once pt has bm likely today POD#3 sigmoidectomy, afib overnight but resolved. advance to low fiber diet if passes flatus or has bm today, otherwise hold with full liquids hold off on eliquis for today h/l ivf's ambulate, is, hsqtid phos replaced overnight Dr. Vernon back tomorrow (2) New onset a-fib: Subjective feels fine passing gas no bm yet(normally trouble moving bowels takes miralax fairly regularly at home had some pain sharp right lower abd fine now Physical Exam Physical Exam: alert no pain wants coffee abd completely benign Results & Data Vital Signs (Past 12 Hours) Vital Signs Temp Pulse Pulse Resp BP Pulse Ox 02/01/19 03:38 36.8 C 72 17 158/74 H 92 01/31/19 23:51 36.7 C 72 17 151/71 H 93 01/31/19 22:20 76 01/31/19 19:21 36.4 C L 100 H 16 144/78 H 100
[2019-02-01] MEDS: METOPROLOL TARTRATE 25 MG TAB PO SCH ×2 (08:10→21:31)
[2019-02-01] MEDS: ONDANSETRON INJ 2 MG/ML 2 ML VIAL IV PRN (08:12)
[2019-02-01] MEDS: APIXABAN 5 MG TABLET PO SCH (08:14)
[2019-02-01] MEDS: PANTOprazole 40 MG TAB PO SCH (08:14)
[2019-02-01] MEDS: POLYETHYLENE (MIRALAX) 17 GM PACK PO SCH (09:24)
--- NOTE | 2019-02-01 19:11 | Cardiology Progress Note ---
Date of Service February 01, 2019 Assessment & Plan (1) New onset a-fib: She continues to have intermittent episodes of atrial fibrillation and high ventricular rates. We did start her on some metoprolol but she continues to have high ventricular rates. She also has periods of relative bradycardia and symptoms associated with this. I think it would be very difficult to manage her atrial fibrillation without a pacemaker. Effectively, she has tachy-urszula syndrome. I would agree with the patient that the likelihood of recurrent atrial fibrillation declines as she recovers from this hospitalization. However, I do believe she will have recurrent episodes in our ability to effectively treated will be limited by her symptoms associated with metoprolol use. I do not believe a rhythm control strategy with amiodarone will have any additional benefit and will expose her to the toxicity of antiarrhythmic medication. She will require anticoagulation indefinitely. I did describe the risks benefits and alternatives to placement of a permanent pacemaker. I discussed this with her daughter as well over the phone. At this point she was skeptical in which to monitor things. I will hold her Eliquis tonight and case she decides to go forward with a pacemaker tomorrow. (2) Elevated troponin: No symptoms of chest discomfort even in the setting of recurrent atrial fibrillation. Subjective Today the patient claims to be feeling well. She did have a brief episode of dizziness and feeling poorly while bradycardic earlier today. She also noticed her palpitations again this morning. She has been tolerating regular diet but no bowel movement yet. Review of Systems Review of Systems: Per HPI Physical Exam Physical Exam: She is alert and oriented x3. Mood affect appear normal. She answered all questions appropriately. HEENT: Sclerae are anicteric. Pupils are equal and reactive to light and accommodation. Extraocular movements were intact. Neuro: Cranial nerves intact Lungs: Respiratory effort normal. No expiratory wheezing Cardiac: Regular rhythm. No murmurs. Results & Data Vital Signs (Past 12 Hours) Vital Signs Temp Pulse Pulse Resp BP Pulse Ox 02/01/19 15:40 36.7 C 68 16 127/73 95 02/01/19 11:13 36.8 C 53 L 18 149/82 H 91 02/01/19 08:00 70 Laboratory Results Abnormal Lab Results 01/31/19 02/01/19 20:39 08:20 POC Glucose 198 H Troponin I 0.316 H*
--- NOTE | 2019-02-02 07:10 | Surgery Progress Note ---
Date of Service February 02, 2019 Assessment & Plan (1) Colon cancer: POD#6 d/c when ok with med service remove Skyler drain before d/c POD #5 d/c once has bm and ok with cardiology path report noted and discussed with pt(will schedule meghan with oncology in office visit after d/c) POD #4 path pending isak from sub cut removed diet advanced to low fiber can start Eliquis per medical service d/c once pt has bm likely today POD#3 sigmoidectomy, afib overnight but resolved. advance to low fiber diet if passes flatus or has bm today, otherwise hold with full liquids hold off on eliquis for today h/l ivf's ambulate, is, hsqtid phos replaced overnight Dr. Vernon back tomorrow (2) New onset a-fib: Subjective feels well moved bowels states getting pacemaker today Review of Systems Review of Systems: no change feels fine although in and out af Physical Exam Physical Exam: alert coherent no pain or discomfort denies chest pain or abdominal pain Results & Data Vital Signs (Past 12 Hours) Vital Signs Temp Pulse Pulse Resp BP BP Pulse Ox 02/02/19 04:00 36.9 C 68 20 180/92 H 91 02/01/19 23:41 36.9 C 69 19 122/69 96 02/01/19 21:30 88 120/66 02/01/19 19:17 36.6 C 73 17 107/58 L 92
[2019-02-02] MEDS: METOPROLOL TARTRATE 25 MG TAB PO SCH ×2 (07:59→20:13)
[2019-02-02] MEDS: PANTOprazole 40 MG TAB PO SCH (07:59)
[2019-02-02] MEDS: POLYETHYLENE (MIRALAX) 17 GM PACK PO SCH (16:33)
[2019-02-03] MEDS ORDERED: BUPIVACAINE 0.25% 30 ML VIAL ONE (06:42)
[2019-02-03] MEDS ORDERED: BACITRACIN INJ 50,000 UNIT VIAL ONE (06:42)
[2019-02-03] MEDS ORDERED: LIDOCAINE HCL 1% 20 ML VIAL ONE (06:42)
[2019-02-03] MEDS ORDERED: fentaNYL citrate 100 MCG/2 ML VIAL ONE (06:53)
[2019-02-03] MEDS ORDERED: MIDAZOLAM HCL 1 MG/ML 2ML VIAL ONE (06:53)
[2019-02-03] MEDS ORDERED: CEFAZOLIN 250 MG/ML 1 GM VIAL ONE (06:53)
[2019-02-03] MEDS ORDERED: ACETAMINOPHEN 325 MG TAB PO PRN (07:59)
--- NOTE | 2019-02-03 07:59 | Procedure Note ---
Procedure Note Date of Service February 03, 2019 Note Procedure performed: Implantation of dual-chamber permanent pacemaker Staff mechanic: Warren Brar MD Indication: Patient is an 83-year-old woman with history of atrial fibrillation associated high ventricular rate. Middle therapy has produced significant bradycardia which was symptomatic. Therefore she was felt be a good candidate for permanent pacemaker due to symptom medic nonreversible AV node dysfunction. This was also be considered tachybradycardia syndrome. A dual-chamber device was selected as patient is currently in sinus rhythm and wished to maintain AV synchrony. Procedure in detail: The patient was informed of the risks benefits and alternatives to the intended procedure and she wished to proceed. She was taken to the electrophysiology suite in a fasting state. A preoperative antibiotic had been administered. The patient was monitored electrocardiographically throughout today's procedure and conscious sedation was administered per protocol. The left upper pectoral area is prepped and draped in usual sterile fashion. This area was anesthetized using subcutaneous administration of a xylocaine solution. An incision was made at this site and carried down to the prepectoralis fascia using sharp dissection. Electrocautery was also employed for dissection as well as for hemostasis. A device pocket was fashioned tissues above the pectoralis muscle. Subsequent to this maneuver the left axillary vein was accessed using modified Seldinger technique. Sheaths were placed over guidewires at this site and used to facilitate passage of the pacing leads to the respective chambers under flu oroscopic guidance. This included right atrial and right ventricular leads. Adequate sensing and threshold parameters were obtained prior to Active fixation of the leads to the endocardial surface. The proximal portion leads were then sutured the prepectoral fascia using nonabsorbable suture. The device pocket was irrigated with antibiotic solution. The leads were then attached to the device. The device and leads were then placed in the pocket and pocket was closed in 3 layers of absorbable suture. Steri-Strips and sterile dressing were applied. The device was tested noninvasively prior to conclusion the procedure. The patient tolerated procedure well there no immediate complications. Equipment used: New pulse generator: [employer] L[employer] Checker [employer]. Model number: [id number] serial numb er [id number] Right atrial lead: [employer] Lunchroom Checker [employer]. Model number: 5076. Serial number PJ [id number] Right ventricular lead: [employer]unchroom Checker [employer]. Model number: 5076 serial number [id number] Measured data: Right atrial lead: P waves measured 3.3 mV. Pacing threshold 1.6 V 0.4 ms with a pacing impedance of 731 ohms Right ventricular lead: R waves measured 5.2 mV. Pacing threshold was 0.5 V 0.4 ms with a pacing impedance of 815 ohms Impression: Successful implantation of dual-chamber permanent pacemaker Coding
[2019-02-03] MEDS: METOPROLOL TARTRATE 25 MG TAB PO SCH ×2 (08:45→20:25)
--- NOTE | 2019-02-03 08:46 | XRay Report ---
XR chest 1V portable HISTORY: 83 years-old Female pacemaker status post placement of a left subclavian pacer COMPARISON: Chest CT 12/30/2018, chest radiograph 10/17/2012 TECHNIQUE: Portable AP view of the chest FINDINGS: Cardiomediastinal and hilar silhouettes are within normal limits. Status post placement of a left sub clavian pacer with leads overlying the expected locations of the right atrium and right ventricle. No postprocedural pneumothorax identified. No overt pulmonary edema, focal airspace consolidation or pl eural effusion identified. Multiple telemetry leads overlie the chest. Surgical clips overlie the lef t lung base/left breast. Degenerative changes of the shoulders and spine. IMPRESSION: Status post placement of a left subclavian pacer. No postprocedural pneumothorax identifi ed. The above report was generated using voice recognition software. It may contain grammatical, syntax o r spelling errors. Electronically signed by: Sai Moreno M.D. 02/03/2019 8:45 AM
[2019-02-03] MEDS: POLYETHYLENE (MIRALAX) 17 GM PACK PO SCH (10:30)
--- NOTE | 2019-02-03 14:44 | Surgery Progress Note ---
Date of Service February 03, 2019 Assessment & Plan (1) Colon cancer: POD 7 sigmoid colectomy doing well possible d/c tomorrow if OK with cards Subjective bowels moving, tolerating diet, pacer placement this morning Physical Exam Gastrointestinal (Abdomen): Inspection/Auscultation: + abdominal surgical incision (dry dressing) and + abdominal surgical drain present (serous); abdomen not distended Results & Data Vital Signs (Past 12 Hours) Vital Signs Temp Pulse Pulse Resp BP BP Pulse Ox 02/03/19 12:00 36.6 C 69 18 122/70 02/03/19 11:53 36.6 C 63 18 131/74 02/03/19 11:20 36.6 C 70 18 123/74 96 02/03/19 09:13 67 02/03/19 09:00 36.6 C 68 18 116/70 96 02/03/19 08:29 36.4 C L 64 18 120/62 95 02/03/19 08:14 36.6 C 68 18 143/79 H 95 02/03/19 08:00 36.6 C 69 18 118/71 95 02/03/19 07:59 36.5 C 69 18 118/71 118/71 95 02/03/19 03:36 36.6 C 71 19 152/99 H 95
[2019-02-03] MEDS: CEFAZOLIN 1000MG 1,000 MG/7.5 ML SYR IV SCH ×2 (15:29→23:50)
[2019-02-04] MEDS: ONDANSETRON INJ 2 MG/ML 2 ML VIAL IV PRN (05:29)
--- NOTE | 2019-02-04 07:11 | XRay Report ---
XR chest 2V routine CLINICAL HISTORY: 83 years-old Female presenting with pacer placement, evaluate for pneumothorax. TECHNIQUE: PA and lateral views of the chest were obtained. COMPARISON: 02/03/2019. FINDINGS: Left subclavian pacer with leads to the right atrium and right ventricular apex. Leads are appropriat kasia positioned. No retained surgical material. Atherosclerosis of aortic arch. Cardiac silhouette nor mal in size. Surgical clips project over the left lung base located within the left breast. Lungs mil dly hyperinflated with heterogeneous radiolucency of the upper lobes. No focal opacity. No pleural ef fusion or pneumothorax. Underlying osteopenia suspected. Upper abdomen normal. IMPRESSION: 1. Appropriately positioned left subclavian 2-lead pacer. No pneumothorax. 2. Findings suggest emphysema. No focal infiltrate to suggest pneumonia. Electronically signed by: Kodi Kohler M.D. 02/04/2019 7:10 AM
--- NOTE | 2019-02-04 07:27 | Surgery Progress Note ---
Date of Service February 04, 2019 Assessment & Plan (1) Colon cancer: POD #8 wale drain removed discussed with pt f/u office 1 week may shower keep pacer insertion site dry will make f/u meghan with onco on f/u vist POD 7 sigmoid colectomy doing well possible d/c tomorrow if OK with cards Subjective no new issues except pain left shoulder(had pacer insertion yesterday) Review of Systems 2 Review of Systems: no abdominal discomfort moving bowels Physical Exam Physical Exam: abd neg incision healing well wale drainage serous has left arm in sling dressing pacer insertion site dry Results & Data Vital Signs (Past 12 Hours) Vital Signs Temp Pulse Pulse Resp BP Pulse Ox 02/04/19 03:05 36.9 C 76 17 150/77 H 95 02/03/19 22:58 37.1 C 68 19 144/77 H 93 02/03/19 19:30 36.8 C 72 17 124/71 92
[2019-02-04] MEDS: CEFAZOLIN 1000MG 1,000 MG/7.5 ML SYR IV SCH (08:00)
[2019-02-04] MEDS: METOPROLOL TARTRATE 25 MG TAB PO SCH (08:00)
[2019-02-04] MEDS: POLYETHYLENE (MIRALAX) 17 GM PACK PO SCH (08:01)
--- NOTE | 2019-02-04 14:31 | Cardiology Progress Note ---
Date of Service February 04, 2019 Assessment & Plan (1) New onset a-fib: She appears to have undergone a successful dual-chamber pacemaker implant. No evidence of complication. She should refrain from lifting left arm above the shoulder behind the neck for 6 weeks. She should keep the wound dry the Steri-Strips intact until follow-up in our clinic next week. She can continue on her current dose of metoprolol. She should resume anticoagulation with Eliquis 5 milligrams twice daily starting tomorrow. (2) Elevated troponin: No symptoms of chest discomfort even in the setting of recurrent atrial fibrillation. Subjective This morning patient claims to be feeling well. She has minimal discomfort at the device implant site. She has been ambulatory around her room and is anxious for discharge. Review of Systems Review of Systems: Per HPI Physical Exam Physical Exam: She is alert and oriented x3. Mood affect appear normal. She answered all questions appropriately. HEENT: Sclerae are anicteric. Pupils are equal and reactive to light and accommodation. Extraocular movements were intact. Neuro: Cranial nerves intact Chest: The device implant site appears to be healing well. No significant hematoma or ecchymosis. Results & Data Vital Signs (Past 12 Hours) Vital Signs Temp Pulse Pulse Pulse Resp BP Pulse Ox 02/04/19 11:36 36.4 C L 74 71 76 19 126/76 97 02/04/19 11:05 36.4 C L 71 19 126/76 97 02/04/19 07:36 36.7 C 79 19 122/69 93 02/04/19 03:05 36.9 C 76 17 150/77 H 95 Laboratory Results Chest x-ray performed this morning revealed good lead placement without evidence of complication Complete device interrogation performed by co which revealed good function on both leads. Normal device function
--- NOTE | 2019-02-07 16:24 | Discharge Summary ---
Date of Service February 07, 2019 Principal Diagnosis 1. Sigmoid colon cancer, well-differentiated adenocarcinoma 2. Right ovarian cyst, benign simple cyst 3. New onset atrial fibrillation 4. Tachy-urszula syndrome 5. Hypertension Discharge Exam Gastrointestinal (Abdomen) Inspection/Auscultation: + abdominal surgical incision (clean, dry, no erythema); abdomen not distended Discharge Data Allergies Allergy/AdvReac Type Severity Reaction Status Date / Time No Known Allergies Allergy Mild Verified 01/27/19 05:51 Consultations 01/27/19 20:53 Consult Hospitalist Routine 01/30/19 08:43 Consult [facility] group insurance special agent Routine 01/31/19 10:07 Consult Cardiology Routine Procedures Performed Operation Date: 01/27/19 07:00 Actual Procedures s Bilateral Salpingo-Oophorectomy(Bilateral) - Makenzie Saha DO p Converted to Open Colon Resection - Rob Vernon MD s Laparoscopic- Assisted, - Rob Vernon MD Operation Date: 02/02/19 15:00 <No data on this case meets the specified criteria> Operation Date: 02/03/19 06:45 Actual Procedures p Pacer with A/V Leads (Dual) - Nikos Brar MD Operation Date: 02/03/19 07:00 <No data on this case meets the specified criteria> Ordered Studies 02/02/19 15:15 EP Lab Images for PACS ONCE 02/03/19 07:00 EP Lab Images for PACS ONCE Hospital Course (1) Colon cancer: 83 y/o female with cancer of sigmoid colon was taken to the OR for laparoscopic assisted colon resection and bilateral oophorectomy for right adnexal cyst. She was transferred to the surgical floor postoperatively. She had some nausea which resolved by POD 2 and she was able to begin clear liquid diet. Overnight leading into day 3 she went into A-fib, was transferred to telemetry and started on metoprolol. She continued to have high ventricular rates, and was seen by cardiology who increased her metoprolol. She then developed tachy-urszula syndrome, and pacemaker was recommended. During this time she had returning jerson l function and was tolerating advancing diet. She had minimal abdominal pain. She elected to proceed with pacemaker placement which was 7 days after her initial surgery. She had also been started on Eliquis. The day after pacemaker placement she was stable for discharge home. Total Time Total Time Spent Total Time Spent (In Minutes): 15 Discharge Plan Discharge Items Patient Disposition: Home - Self-Care Reason For Visit: Adenocarcinoma Sigmoid Discharge Diagnosis: sigmoid colon resection Atrial fibrillation Pacemaker placement Discharge Goals: Decrease discomfort Activity: Per 'Additional Instructions' section Lifting: No more than 10 pounds Bathing Comment: keep left shoulder incision dry for 4 more days Driving/Machine Use Comment: when pain free Non-emergency contact: Surgeon Call non-emergency contact if: you have any medication questions, your pain is not controlled, you have a fever, your temperature is above 101.5, your wound has increased redness and your wound has increased drainage Follow-up/Referrals: Luis Polo PA-C [Physician Sign Erector] - 02/14/19 2:00 pm (Please follow up with Luis Polo PA-C, cardiology office on February 14, 2019 at 2:00pm. This is their first available appointment. Their office will be contacting you regarding a 24 hour holter monitor you'll need to wear. Please call their office if you do not hear about this within 3-5 days after discharge.) Rob Vernon MD [Surgeon] - (In 1 week, call [phone] to schedule) Dalton Baugh MD [Primary Care Provider] - Diet: Low Fiber Addtl Provider Instructions: Prescriptions: New metoprolol tartrate 25 mg Tablet 25 mg PO BID Qty: 60 RF: 0 Eliquis 5 mg Tablet 5 mg PO BID Qty: 60 RF: 0 Continued polyethylene glycol 3350 [Miralax] 17 gram/dose powder 17 gm PO DAILY RF: 0 atorvastatin [Lipitor] 10 mg Tablet 10 mg PO HS RF: 0 multivitamin with minerals Capsule 1 cap PO QAM RF: 0 cholecalciferol (vitamin D3) [Vitamin D3] 1,000 unit Tablet 1,000 unit PO QAM RF: 0 calcium carbonate-vitamin D3 [Calcium 600 with Vitamin D3] 600 mg(1,500mg) - 500 unit Capsule 1 cap PO HS RF: 0 Discontinued aspirin 81 mg Tablet,Delayed Release (Dr/Ec) 162 mg PO HS RF: 0 Stand-Alone Forms: [facility] Discharge Orders: Discharge Order (Routine); Ordered 02/04/19 Ordered By: Santosh Chadwick Jr Admission Data Admit Date/Time: 01/27/19 09:25 Attending Provider: Rob Vernon Admit Provider: Rob Vernon Primary Care Provider: Dalton Baugh Other Providers: Nikos Brar ; Joe Rainey Service: Surgical Services Other Interventions: Discharge Summary Assessment (RN) Last Done: 02/04/19 11:36 DC Date/Time DO NOT enter until pt leaves facility: 02/04/19 12:28
== END 2019-02-04 12:28 | disposition home or self-care (01) | DRG 330 ==
LOC: ASU 05:30 → 3N 09:25 → 2S 01-30 00:51
DX: I48.91 Unspecified atrial fibrillation; Z79.82 Long term (current) use of aspirin; I49.5 Sick sinus syndrome; I10 Essential (primary) hypertension; C18.7 Malignant neoplasm of sigmoid colon; N85.8 Other specified noninflammatory disorders of uterus; Z79.899 Other long term (current) drug therapy; E78.5 Hyperlipidemia, unspecified; I24.8 Other forms of acute ischemic heart disease; K21.9 Gastro-esophageal reflux disease without esophagitis